=== PATIENT | female | born 1985 | race Caucasian/White ===

== ENCOUNTER 2020-11-30 03:16 | Emergency (ER) | payer OTHER ==
[~2020-11-30] VITALS: Ht 170.2 cm; Wt 139.0 kg
[2020-11-30] MEDS ORDERED: KETOROLAC 30 MG/1 ML IM ONE (04:00)
--- NOTE | 2020-11-30 04:06 | NUR ---
PT C/O OF RT ANKLE PAIN. PT STATES SHE ROLLED ANKLE TWO DAYS AGO AND PAIN HAS BEEN GETTING WORSE SINCE THEN. STATES PAIN SHOOTS UP LEG NOW. PT APPEARS TO BE IN NAD. ATTACHED TO MONITORS. VSS. BED IN LOW POSITION, RAILS ENGAGED, CALL LIGHT ON LAP. WCTM CMS INTACT DISTAL TO INJURY
--- NOTE | 2020-11-30 04:07 | NUR ---
PT OFF UNIT IN IMAGING.
--- NOTE | 2020-11-30 04:08 | NUR ---
PT WAS GIVEN ICE FOR ANKLE
[2020-11-30] MEDS ORDERED: KETOROLAC 30 MG/1 ML ONE (04:45)
--- NOTE | 2020-11-30 04:56 | NUR ---
Patient is resting comfortably in bed. Bed in lowest, rails engaged, call light on lap. Vital Signs within normal limits. WCTM. PT AMBULATED TO BATHROOM WITH STEADY GAIT TOLERATING WELL. CORDELL
--- NOTE | 2020-11-30 04:56 | NUR ---
AMBULATED TO BATHROOM AND BACK TO BED. ATTACHED TO MONITORS.
[2020-11-30 06:20] VITALS: BP 101/48
== END 2020-11-30 06:42 | disposition home or self-care (01) ==
LOC: ED 06:16
DX: S83.91XA Sprain of unspecified site of right knee, initial encounter (principal); S93.601A Unspecified sprain of right foot, initial encounter; S93.401A Sprain of unspecified ligament of right ankle, initial encounter; X50.0XXA Overexertion from strenuous movement or load, initial encounter; Y93.89 Activity, other specified; Y92.89 Other specified places as the place of occurrence of the external cause; Y99.8 Other external cause status
CPT/HCPCS: 73564; 73610; 73630; 96372; 99284; J1885